=== PATIENT | male | born 2000 | race American Indian/Alaskan Native ===

== ENCOUNTER 2020-05-08 20:41 | Emergency (ER) | payer SELFPAY ==
[2020-05-09] MEDS ORDERED: IBUPROFEN 400 MG TAB PO ONE (01:11)
[2020-05-09] MEDS ORDERED: ACETAMINOPHEN 325 MG TAB PO ONE (01:11)
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
[2020-05-09 02:19] VITALS: BP 115/70
== END 2020-05-09 01:52 | disposition home or self-care (01) ==
LOC: ED 20:41
DX: R51.9 Headache, unspecified (principal); M54.9 Dorsalgia, unspecified; V49.49XA Driver injured in collision with other motor vehicles in traffic accident, initial encounter; Y93.89 Activity, other specified; Y92.488 Other paved roadways as the place of occurrence of the external cause; Y99.8 Other external cause status
CPT/HCPCS: 99282

== ENCOUNTER 2020-06-26 09:55 | Emergency (ER) | payer SELFPAY ==
[2020-06-26] MEDS ORDERED: ACETAMINOPHEN 325 MG TAB PO ONE (10:35)
--- NOTE | 2020-06-26 10:54 | Event Note ---
ED Screening Note Date of service: 06/26/20 Time: 10:44 ED Screening Note: 19-year-old -[place] male presents to the emergency room for headache fever. It was noted the patient's temperature was 102.3 in triage. This initial assessment/diagnostic orders/clinical plan/treatment(s) is/are subject to change based on patients health status, clinical progression and re- assessment by fellow clinical providers in the ED. Further treatment and workup at subsequent clinical providers discretion. Patient/guardian urged not to elope from the ED as their condition may be serious if not clinically assessed and managed. Initial orders include:
--- NOTE | 2020-06-26 12:24 | Emergency Department Report ---
ED General Adult HPI - General Chief complaint: Headache Stated complaint: MIGRAINE/COLD CHILLS Time Seen by Provider: 06/26/20 10:44 Source: patient Mode of arrival: Ambulatory Limitations: No Limitations - History of Present Illness Initial comments: 19 yo male presents to the ED complaining of headache chills started last night. He denies runny nose sore throat or ear pain he denies vomiting he denies chest pain shortness of breath. He denies coughing. He denies loss of taste s smell . No known sick contacts . he denies neck stiffness he denies difficulty walking or talking. He denies he denies any past medical history trauma or injuries. Patient states that his headache is completely gone now he was given Tylenol while he waited and he no longer has a headache -: Gradual, During the night Location: head Radiation: non-radiation Severity scale (0 -10): 8 Quality: aching Consistency: constant Improves with: other (Headache is now relieved after taking Tylenol) Associated Symptoms: fever/chills. denies: confusion, chest pain, cough, loss of appetite, malaise, nausea/vomiting, rash, other Treatments Prior to Arrival: other (He was given Tylenol 650 while he waited to be seen) - Related Data Previous Rx's Medication Instructions Recorded Last Taken Type Acetaminophen 650 mg PO Q4H PRN #12 oral.susp 06/26/20 Unknown Rx Allergies Allergy/AdvReac Type Severity Reaction Status Date / Time No Known Allergies Allergy Unverified 06/26/20 10:34 ED Review of Systems ROS: Stated complaint: MIGRAINE/COLD CHILLS Other details as noted in HPI Comment: All other systems reviewed and negative Constitutional: chills, fever ENT: denies: ear pain, throat pain, dental pain, hearing loss, epistaxis Respiratory: denies: cough, SOB with exertion Cardiovascular: denies: chest pain, palpitations, dyspnea on exertion Endocrine: denies: excessive sweating, flushing, intolerance to cold, intolerance to heat Gastrointestinal: denies: abdominal pain, nausea, vomiting, diarrhea, constipation, hematemesis Genitourinary: denies: dysuria Skin: denies: rash Neurological: headache. denies: numbness, paresthesias, confusion, abnormal gait, vertigo, other Psychiatric: denies: anxiety, depression, auditory hallucinations ED Past Medical Hx - Past Medical History Previous Medical History?: No - Surgical History Past Surgical History?: Yes Additional Surgical History: B/L foot - Social History Smoking Status: Never Smoker Substance Use Type: None - Medications Home Medications: Home Medications Medication Instructions Recorded Confirmed Last Taken Type Acetaminophen 650 mg PO Q4H PRN #12 oral.susp 06/26/20 Unknown Rx ED Physical Exam - General Limitations: No Limitations General appearance: alert, in no apparent distress - Head Head exam: Present: atraumatic - Eye Eye exam: Present: normal appearance. Absent: conjunctival injection - ENT ENT exam: Present: normal exam, mucous membranes moist, TM's normal bilaterally - Neck Neck exam: Present: normal inspection, full ROM. Absent: meningismus, lymphadenopathy - Respiratory Respiratory exam: Present: normal lung sounds bilaterally. Absent: respiratory distress, wheezes, rales, stridor, decreased breath sounds - Cardiovascular Cardiovascular Exam: Present: regular rate, normal heart sounds - GI/Abdominal GI/Abdominal exam: Present: soft, normal bowel sounds. Absent: distended, tenderness - Extremities Exam Extremities exam: Present: normal inspection - Back Exam Back exam: Present: normal inspection - Neurological Exam Neurological exam: Present: alert, oriented X3, CN II-XII intact, normal gait, other. Absent: motor sensory deficit ED Course Vital Signs 06/26/20 06/26/20 10:30 14:31 Temperature 102.3 F H 98.6 F Pulse Rate 112 H 100 H Respiratory 20 18 Rate Blood Pressure 118/74 Blood Pressure 134/74 [Right] O2 Sat by Pulse 99 100 Oximetry ED Medical Decision Making - Lab Data Result diagrams: 06/26/20 12:47 06/26/20 12:47 - Radiology Data Radiology results: report reviewed No acute findings on chest x-ray - Medical Decision Making 19-year-old male developed headache and chills overnight. He reports to the emergency room with complaint of headache his temperature is 102.3 he denied any coughing any nausea vomiting,sore throat loss of taste and smell. He has no known sick contacts. He is in no acute distress. At the time of my evaluation patient denies any headache. He had already received 650 of Tylenol . Rapid influenza AMB is negative. Chest x-ray is negative. Lab CBC and CMP with no acute findings. He had a negative neurological exam. Gait steady negative Romberg. I observed patient walking in the emergency room with no difficulty to be discharged home to follow-up with primary care doctor or Dr. Negron Critical care attestation.: If time is entered above; I have spent that time in minutes in the direct care of this critically ill patient, excluding procedure time. ED Disposition Clinical Impression: Viral illness Headache Qualifiers: Headache type: unspecified Headache chronicity pattern: episodic headache Intractability: not intractable Qualified Code(s): R51.9 - Headache, unspecified Disposition: DC- TO HOME OR SELFCARE Is pt being admited?: No Does the pt Need Aspirin: No Condition: Stable Instructions: Fever, Adult, General Headache Without Cause, Hand Washing, [id number], Viral Illness, Adult Additional Instructions: Your chest x-ray had no acute findings your blood work worse within normal limits. This is most likely a viral illness. You are to rest increase your oral intake to at least 6 to 8 glasses of water. You should take [id number] Tylenol 325 mg you may take 2 tablets every 4-6 hours as needed for fever or pain. Return to the emergency room for any worsening symptoms such as persistent headache persistent fever stiff neck confusion and ability to eat otherwise follow-up with your primary care doctor and or the referral given to you to Dr. Negron. in 3 to 5 days Prescriptions: Acetaminophen 650 mg PO Q4H PRN #12 oral.susp PRN Reason: Headache Referrals: PRIMARY CARE, [Primary Care Provider] - 3-5 Days Forms: Work/School Release Form(ED) Time of Disposition: 14:10
--- NOTE | 2020-06-26 13:12 | XRay Report ---
CHEST 2 VIEWS INDICATION / CLINICAL INFORMATION: FEVER 102. COMPARISON: None available. FINDINGS: SUPPORT DEVICES: None. HEART / MEDIASTINUM: No significant abnormality. LUNGS / PLEURA: No significant pulmonary or pleural abnormality. No pneumothorax. ADDITIONAL FINDINGS: No significant additional findings. IMPRESSION: 1. No acute findings. Signer Name: Arnaldo Leonardo MD Signed: 06/26/2020 1:07 PM Workstation Name: [id number]
[2020-06-26 13:25] LABS: Hematocrit 43.2 % (35.5-45.6); Hemoglobin 14.5 gm/dl (11.8-15.2); Mean Corpuscular HGB Conc 34 % (32-34); Mean Corpuscular Volume 85 fl (84-94); Platelet Count 278 K/mm3 (140-440); Red Cell Distribution Width 12.2 % (13.2-15.2)
[2020-06-26 13:47] LABS: Alanine Aminotransferase 12 units/L (7-56); Albumin 4.8 g/dL (3.9-5); BUN/Creatinine Ratio 10; Blood Urea Nitrogen 8 mg/dL (9-20); Calcium 10.4 mg/dL (8.4-10.2); Hemolysis Index 33
[2020-06-26 14:32] VITALS: BP 134/74
== END 2020-06-26 14:38 | disposition home or self-care (01) ==
LOC: ED 09:55
DX: B34.9 Viral infection, unspecified (principal); R51.9 Headache, unspecified; Z79.899 Other long term (current) drug therapy; Z98.890 Other specified postprocedural states
CPT/HCPCS: 36415; 71046; 80053; 85027; 87400